=== PATIENT | male | born 1975 | race Caucasian/White ===

== ENCOUNTER 2021-06-02 10:09 | Emergency (ER) | payer SELFPAY ==
[2021-06-02 10:18] VITALS: BP 102/71; PULSE 78; RESP 18; TEMP 36.9; O2SAT 97; BMI 27.3
--- NOTE | 2021-06-02 11:03 | XR_ITS ---
WS: [id number] Exam: XR chest 2V* [id number] Date/Time of Exam: 06/02/2021 11:07 AM Reason For Exam: eval for pathologies Comparison 07/09/2016. Lobulated pulmonary density seen in the region of the superior segment of the left lower lobe. This m ay represent consolidating pneumonia or mass. The lungs are fully inflated and otherwise clear. Estelita l heart size. The mediastinum is normal in contour. Regional bony elements are intact. Dextroscoliosi s of the T-spine. No pleural effusions. Recommendations: Contrast CT scanning of the chest recommended for further workup. XR/XR chest 2V* [id number] IMPRESSION: 1. Prominent lobulated pulmonary density in the region of the superior segment of the left lower lobe. This may represent a mass or consolidating pneumonia.
--- NOTE | 2021-06-02 11:15 | ECG_ITS ---
[facility] Test Date: 2021-06-02 Pat Name: Kee Catherine Department: Room: Gender: Male Counter Server: : 1975 Requested By: Allen Mondragon Order Number: [id number] Rico MD: Elliot Basilio M.D. Measurements Intervals [place] Rate: 77 P: 62 TN: 119 QRS: 56 QRSD: 84 T: 51 QT: 414 QTc: 471 Interpretive Statements SINUS RHYTHM WITH SHORT TN INTERVAL Compared to ECG 07/09/2016 16:20:23 Short TN interval now present Sinus bradycardia no longer present Electronically Signed On 06-02-2021 22:03:04 CDT by Elliot Basilio M.D. [id number]
--- NOTE | 2021-06-02 11:16 | W.ED.GENADLT ---
HPI - General Adult General: Chief complaint: General Medical Stated complaint: Knot in side with pain Time Seen by Provider: 06/02/21 11:03 History of Present Illness: Patient is a 46-year-old male with no known past medical history presents the emergency room for evaluation of left-sided abdominal pain x 2 weeks. Patient states that this pain has been, for the last 2 days, is occasionally sharp and worse with inspiration. Patient also reports last week, shortly after eating at a [employer] restaurant, patient has a nausea vomiting and watery stool. Patient reports subjective fever and chills but reports no symptoms largely improved. Patient denies any productive cough, exertional chest pain, pleuritic chest pain, melena/hematochezia or urinary complaints at this time. Onset: 2 weeks ago Duration:2 weeks Location:home Severity:mild/moderate Associated symptoms: Reports nausea and vomiting; Deny chest pain, dyspnea, rash or palpitations Review of Systems Const: Denies: fever(s) or chills Eyes: Denies: change in vision ENMT: Denies: mouth pain Card: Denies: chest pain or palpitations Resp: Denies: dyspnea or non-productive cough GI: Reports: abdominal pain, nausea, vomiting and diarrhea : Denies: dysuria Musc: Denies: extremity pain Skin/Breast: Denies: rash or new lesions Neuro: Denies: weakness in extremities Psych: Reports: other (Normal mood) Liam/Lymph: Denies: easy bruising Physical Exam Const: COMMON NORMALS: alert HENMT: COMMON NORMALS: atraumatic HEAD & SCALP: atraumatic MOUTH: moist mucous membranes not abnormal OTHER: TM intact b/l, no EAC edema or erythema Eye: COMMON NORMALS: EOMs intact bilaterally and conjunctivae normal CONJUNCTIVA: Yes conjunctivae normal OTHER: No dendritic lesions on fluorsceine evaluation of both eyes Neck/C-Spine: COMMON NORMALS: full ROM and supple Resp: COMMON NORMALS: normal respiratory effort and clear to auscultation bilaterally AUSCULTATION: clear to auscultation bilaterally Cardio: COMMON NORMALS: regular rate RATE: regular rate GI: COMMON NORMALS: Soft to palpation PALPATION: Yes Soft to palpation OTHER: +LUQ abd tenderness to palpation. No guarding rebound, guarding, rigidity. No CVA tenderness to percussion. Neg Phillips/Neg McBurney's point tenderness, no suprabupic tenderness to palpation. Extremity: COMMON NORMALS: full ROM Neuro: SENSORIUM/ORIENTATION: Yes alert MOTOR EXAM: No Abnormal motor strength present and Other motor observations present (no focal motor deficits) Psych: COMMON NORMALS: speech normal SPEECH: Yes normal speech MOOD & AFFECT: Yes euthymic mood Skin: NARRATIVE SKIN EXAM: +nasal bridge erythema and veiscular lesions +perioral vesicular lesions Course Vital Signs: Vital signs: Vital Signs Temperature 98.4 F 06/02/21 10:18 Pulse Rate 80 06/02/21 12:15 Respiratory Rate 16 06/02/21 12:15 Blood Pressure 131/87 06/02/21 12:15 Pulse Oximetry 99 06/02/21 12:15 MDM - General Adult Medical Decision Making 46-year-old male presenting to the emergency room for complaints of abdominal pain x2 weeks in the setting of nausea vomiting and diarrhea and new facial rash over the nose x1 week. On physical exam, patient is noted to have eruptive vesicular lesion over the nasal bridge. Patient has no dendritic lesion on forcing the exam of the eye. EAC intact bilaterally. At the present time, it is unclear whether patient is having early herpes zoster ophthalmicus. Patient has no history of immunocompromise, will treat with antibiotics and antiviral medicine. Patient is noted to have a white count of 18.2. X-ray chest showed left upper lobe consolidating lesion. It is unclear what this lesion needs is. Patient has a copy of the x-ray report as instructed follow-up with PCP for further evaluation of this mass. We will treated for now as pneumonia and patient was instructed to follow-up to further evaluate this mass. Other lab work up within normal limit. CT of pelvis did not show any acute finding. Given the fact the patient has possible hepatic lesions, we will double cover for pneumonia. I have given patient follow up with our bilingual patient support caseworker to be seen by our outpatient Opthalmology for evaluation for possible herpetic infection of the nose. Patient aware of a call from our bilingual patient support caseworker to schedule for appointment(s) and verbalizes understanding of the importance of following up. I have given patient follow up with our bilingual patient support caseworker to be seen by our outpatient PCP at the [facility] as patient is lives to there for outpatient management of PNA. Patient aware of a call from our bilingual patient support caseworker to schedule for appointment(s) and verbalizes understanding of the importance of following up. Rx valcyclovir 1g TID x 7 days and augmentin BID x 10 days for pneumonia, doxycycline BID x 5 days for pneumonia Disposition: Discharge. Patient counseled regarding diagnostic impression, treatment plan. Patient given ED strict return precautions to return for continuation, worsening, or development of new symptoms. Instructed to f/u w/ PCP regarding symptoms today. Patient verbalized understanding. Lab Data : 06/02/21 12:00 06/02/21 12:00 Radiology Impressions Chest X-Ray 06/02/21 11:03 IMPRESSION: 1. Prominent lobulated pulmonary density in the region of the superior segment of the left lower lobe. This may represent a mass or consolidating pneumonia. Ribs X-Ray 06/02/21 11:18 IMPRESSION: 1. No acute left rib fracture or pneumothorax. Abdomen/Pelvis CT 06/02/21 12:23 IMPRESSION: 1. LEFT lower lobe pneumonia. 2. No GI tract obstruction. 3. No renal obstruction. 4. No ascites or adenopathy. 5. Normal appendix. Laboratory Results WBC 18.2 10^3/uL (4.0-10.0) H 06/02/21 12:00 RBC 4.81 10^6/uL (4.1-5.3) 06/02/21 12:00 Hgb 13.5 g/dL (11.7-16.6) 06/02/21 12:00 Hct 41.3 % (42.0-52.0) L 06/02/21 12:00 MCV 85.9 fl (80-94) 06/02/21 12:00 MCH 28.1 pg (28.0-34.0) 06/02/21 12:00 MCHC 32.7 g/dL (30.0-36.0) 06/02/21 12:00 RDW 13.0 % (12.1-15.1) 06/02/21 12:00 Plt Count 558 10^3/cmm (130-400) H 06/02/21 12:00 MPV 9.4 fL (7.4-10.4) 06/02/21 12:00 Neut % (Auto) 81.9 % 06/02/21 12:00 Lymph % (Auto) 10.7 % 06/02/21 12:00 [place] % (Auto) 5.0 % 06/02/21 12:00 Eos % (Auto) 0.9 % 06/02/21 12:00 Baso % (Auto) 0.4 % 06/02/21 12:00 Neut # (Auto) 14.90 10^3/uL (1.8-7.7) H 06/02/21 12:00 Lymph # (Auto) 1.9 10^3/uL (0.8-4.8) 06/02/21 12:00 [place] # (Auto) 0.9 10^3/uL (0.2-0.9) 06/02/21 12:00 Eos # (Auto) 0.2 10^3/uL (0.0-0.8) 06/02/21 12:00 Baso # (Auto) 0.1 10^3/uL (0.0-0.1) 06/02/21 12:00 Nucleated RBC % (auto) 0 % 06/02/21 12:00 Nucleated RBCs # 0.0 /100WBC 06/02/21 12:00 Sodium 138 mmol/L (136-145) 06/02/21 12:00 Potassium 3.4 mmol/L (3.5-5.1) L 06/02/21 12:00 Chloride 99 mmol/L (98-107) 06/02/21 12:00 Carbon Dioxide 25 mmol/L (22-29) 06/02/21 12:00 Anion Gap 17.4 (5-19) 06/02/21 12:00 BUN 5 mg/dL (6-20) L 06/02/21 12:00 Creatinine 0.5 mg/dL (0.7-1.2) L 06/02/21 12:00 GFR Calculation 180.6 mL/min (90-130) H 06/02/21 12:00 Glucose 92 mg/dL (65-115) 06/02/21 12:00 Calculated Osmolality 283 mOsm/kg (285-295) L 06/02/21 12:00 Calcium 9.0 mg/dL (8.5-10.5) 06/02/21 12:00 Total Bilirubin 0.2 mg/dL (0.15-1.2) 06/02/21 12:00 AST 14 U/L (0-40) 06/02/21 12:00 ALT 21 U/L (0-41) 06/02/21 12:00 Alkaline Phosphatase 106 IU/L (40-130) 06/02/21 12:00 Troponin T Baseline 6 ng/L (0-15) 06/02/21 12:00 Total Protein 7.1 g/dL (6.6-8.7) 06/02/21 12:00 Albumin 3.5 g/dL (3.5-5.2) 06/02/21 12:00 Globulin 3.6 g/dL (1.3-4.6) 06/02/21 12:00 Lipase 39 U/L (13-60) 06/02/21 12:00 Urine Color Straw (Yellow) 06/02/21 12:15 Urine Appearance Clear (CLEAR) 06/02/21 12:15 Urine pH 8 (5-7) H 06/02/21 12:15 Ur Specific [place] 1.010 (1.005-1.030) 06/02/21 12:15 Urine Protein Neg (Negative) 06/02/21 12:15 Urine Glucose (UA) Norm (Normal) 06/02/21 12:15 Urine Ketones Negative (Negative) 06/02/21 12:15 Urine Blood Neg (Negative) 06/02/21 12:15 Urine Nitrate Negative (Negative) 06/02/21 12:15 Urine Bilirubin Neg (Negative) 06/02/21 12:15 Prot Sulfosalicylic Acd Negative (Negative) 06/02/21 12:15 Urine Urobilinogen 1 mg/dL (Negative) H 06/02/21 12:15 Ur Leukocyte Esterase Negative (Negative) 06/02/21 12:15 Imaging Data Other Imaging: Radiologist's impression: [address] [address] XRay Report Signed Patient: Kee Catherine Unit #: [id number] : 1975 Age/Sex: 46 / M ADM Date: 06/02/21 Loc: ER Room/Bed: Attending Dr: Ordering Provider/Ordering MD: Allen Mondragon MD Date of Service: 06/02/21 Procedure(s): XR chest 2V* [id number] Accession Number(s): [id number] Report Number: [id number] [email or web address] Exam: XR chest 2V* [id number] Date/Time of Exam: 06/02/2021 11:07 AM Reason For Exam: eval for pathologies Comparison 07/09/2016. Lobulated pulmonary density seen in the region of the superior segment of the left lower lobe. This may represent consolidating pneumonia or mass. The lungs are fully inflated and otherwise clear. Normal heart size. The mediastinum is normal in contour. Regional bony elements are intact. Dextroscoliosis of the T-spine. No pleural effusions. Recommendations: Contrast CT scanning of the chest recommended for further workup. XR/XR chest 2V* [id number] IMPRESSION: 1. Prominent lobulated pulmonary density in the region of the superior segment of the left lower lobe. This may represent a mass or consolidating pneumonia. ? Dictated By: Curt Baldwin DO Signed By: Curt Baldwin DO Signed Date/Time: 06/02/21 1144 DD/ [address] [address] XRay Report Signed Patient: Kee Catherine Unit #: [id number] : 1975 Age/Sex: 46 / M ADM Date: 06/02/21 Loc: ER Room/Bed: Attending Dr: Ordering Provider/Ordering MD: Allen Mondragon MD Date of Service: 06/02/21 Procedure(s): XR ribs LT 2V* 56298 Accession Number(s): [id number] Report Number: [id number] WS: [email or web address] Exam: XR ribs LT 2V* 49125 Date/Time of Exam: 06/02/2021 11:19 AM Reason For Exam: KNOT IN SIDE WITH PAIN; EVAL FOR PATHOLOGIES No acute left rib fracture noted. The left lung is fully expanded and clear. No pleural or pulmonary reactive changes. XR/XR ribs LT 2V* 84415 IMPRESSION: 1. No acute left rib fracture or pneumothorax. ? Dictated By: Curt Baldwin DO Signed By: Curt Baldwin DO Signed Date/Time: 06/02/21 1141 DD/ 1138 [facility] [address] [place] [address] CT Scan Report Signed Patient: Kee Catherine Unit #: [id number] : 1975 Age/Sex: 46 / M ADM Date: 06/02/21 Loc: ER Room/Bed: Attending Dr: Ordering Provider/Ordering MD: Allen Mondragon MD Date of Service: 06/02/21 Procedure(s): CT abdomen pelvis w con* 95332 Accession Number(s): [id number] Report Number: [id number] WS: [email or web address] CT ABDOMEN AND PELVIS WITH CONTRAST HISTORY: Left-sided abdominal pain for 2 weeks. TECHNIQUE: Imaging performed of the abdomen and pelvis with IV contrast.? Single phase imaging of the abdomen. Coronal and sagittal reformats are submitted.? All CT scans at [facility] use at least one of these dose optimization techniques: automated exposure control; mA and/or kV adjustment per patient size (includes targeted exams where dose is matched to clinical indication); or iterative reconstruction. IV CONTRAST: Omnipaque 300; 95 mL IV. Oral contrast: No DLP: 1075.93 mGy.cm COMPARISON: 07/09/2016 Lower thorax: LEFT lower lobe pneumonia. Heart is normal size. Moderate size hiatal hernia. Liver/biliary system: Liver is normal size. Very small scattered areas of decreased attenuation throughout the liver which are too small to characterize but the majority of these are stable since 2017. These may be small cysts or hemangiomas. No bile duct dilatation. Gallbladder: Normal. No gallstones or wall thickening. No pericholecystic fluid.? Pancreas: Normal size pancreas and pancreatic duct. No adjacent inflammation. Spleen: Normal size spleen. No mass or infarct. Adrenal glands: Normal. Right kidney: Normal. Left kidney: No obstruction. There are several small cortical cysts. Largest cyst measures 18 x 14 mm. No obstruction of the kidney. Aorta: Normal. Lymphadenopathy: None. Free fluid: None. GI tract: No small bowel or colon obstruction. The appendix is normal. No mass. Abdominal wall: Unremarkable abdominal wall. No hernia. Pelvis: No free fluid or adenopathy in the pelvis. Minimally distended urinary bladder. Bones: Mild increase in lumbar lordosis. CT/CT abdomen pelvis w con* 76006 IMPRESSION: ? 1.? LEFT lower lobe pneumonia. 2.? No GI tract obstruction. 3.? No renal obstruction. 4.? No ascites or adenopathy. 5.? Normal appendix. ? Dictated By: Tara Childress DO Signed By: Tara Childress DO Signed Date/Time: 06/02/21 1311 DD/ 1259 Discharge Plan Discharge Patient Disposition: Home Clinical Impression: Abdominal pain, Lung mass, Pneumonia Condition: Stable Prescriptions: New Augmentin 875-125 mg tablet 1 tab PO Q12H 10 Days Qty: 20 0RF Valtrex 1 gram tablet 1,000 mg PO TID 7 Days Qty: 21 0RF acetaminophen 500 mg tablet 500 mg PO Q6H PRN (Reason: pain) 5 Days Qty: 20 0RF doxycycline hyclate 100 mg tablet 100 mg PO BID 5 Days Qty: 10 0RF Discharge Orders: Discharge ED (Routine); Ordered 06/02/21 Ordered By: Allen Mondragon Discharge Diet: Advance as tolerated Discharge Activity: Increase activity as tolerated Patient Instructions: Abdominal Pain (ED) Activity Restrictions/Additional Instructions: Our bilingual patient support caseworker will have you follow-up with a primary care provider at [facility] in the next few days. You would be expected to have a phone call with our bilingual patient support caseworker who will put you on the schedule. You can expect a call from us in the next 2-3 days. If you don't hear from us, call us back in the emergency room at [phone]. I have given patient follow up with our bilingual patient support caseworker to be seen by our outpatient Opthalmology for evaluation of Oliva sign and possible herpes zoster opthalmicus. Patient aware of a call from our bilingual patient support caseworker to schedule for appointment(s) and verbalizes understanding of the importance of following up. Please take your antibiotics and antiviral as instructed. Watch out for signs of skin changes/redness, mouth redness or swelling, nausea/vomiting, diarrhea, blood in the urine or any new or concering complaints. Here's a copy of your CT report: [employer] [address] XRay Report Signed Patient: Kee Catherine Unit #: [id number] : 1975 Age/Sex: 46 / M ADM Date: 06/02/21 Loc: ER Room/Bed: Attending Dr: Ordering Provider/Ordering MD: Allen Mondragon MD Date of Service: 06/02/21 Procedure(s): XR chest 2V* [id number] Accession Number(s): [id number] Report Number: [id number] WS: [email or web address] Exam: XR chest 2V* [id number] Date/Time of Exam: 06/02/2021 11:07 AM Reason For Exam: eval for pathologies Comparison 07/09/2016. Lobulated pulmonary density seen in the region of the superior segment of the left lower lobe. This may represent consolidating pneumonia or mass. The lungs are fully inflated and otherwise clear. Normal heart size. The mediastinum is normal in contour. Regional bony elements are intact. Dextroscoliosis of the T-spine. No pleural effusions. Recommendations: Contrast CT scanning of the chest recommended for further workup. XR/XR chest 2V* 67565 IMPRESSION: 1. Prominent lobulated pulmonary density in the region of the superior segment of the left lower lobe. This may represent a mass or consolidating pneumonia. ? Dictated By: Curt Baldwin DO Signed By: Curt Baldwin DO Signed Date/Time: 06/02/21 1144 DD/ 1141 Coding Level of Care Code ED Trailer Mechanic for Chg Fwd Exam Comprehensive
--- NOTE | 2021-06-02 11:18 | XR_ITS ---
WS: [email or web address] Exam: XR ribs LT 2V* [id number] Date/Time of Exam: 06/02/2021 11:19 AM Reason For Exam: KNOT IN SIDE WITH PAIN; EVAL FOR PATHOLOGIES No acute left rib fracture noted. The left lung is fully expanded and clear. No pleural or pulmonary reactive changes. XR/XR ribs LT 2V* 18845 IMPRESSION: 1. No acute left rib fracture or pneumothorax.
[2021-06-02] MEDS: lidocaine 5% Patch 1 PATCH TOPICAL (11:54)
[2021-06-02] MEDS: sodium chloride 0.9% 500 ML IV (11:54)
[2021-06-02] MEDS: lidocaine 2% viscous 15 ML, aluminum-mag hydrox-simethicon 30 ML, sucralfate oral liq 1 GM PO (11:54)
[2021-06-02] MEDS: acetaminophen 500 mg Tablet 1000 MG PO (11:54)
[2021-06-02 12:14] LABS: Basophils # 0.1 10^3/uL (0.0-0.1); Basophils % 0.4 %; Eosinophils # 0.2 10^3/uL (0.0-0.8); Eosinophils % 0.9 %; Hematocrit 41.3 % (42.0-52.0); Hemoglobin 13.5 g/dL (11.7-16.6); Lymphocytes # 1.9 10^3/uL (0.8-4.8); Lymphocytes % 10.7 %; Mean Corpuscular HGB Conc 32.7 g/dL (30.0-36.0); Mean Corpuscular Hemoglobin 28.1 pg (28.0-34.0); Mean Corpuscular Volume 85.9 fl (80-94); Mean Platelet Volume 9.4 fL (7.4-10.4); Monocytes # 0.9 10^3/uL (0.2-0.9); Neutrophils % 81.9 %; Nucleated Red Blood Cells % 0 %; Platelet Count 558 10^3/cmm (130-400); Red Blood Count 4.81 10^6/uL (4.1-5.3); White Blood Count 18.2 10^3/uL (4.0-10.0)
[2021-06-02 12:15] VITALS: BP 131/87; PULSE 80; RESP 16; O2SAT 99
--- NOTE | 2021-06-02 12:23 | CT_ITS ---
WS: [email or web address] CT ABDOMEN AND PELVIS WITH CONTRAST HISTORY: Left-sided abdominal pain for 2 weeks. TECHNIQUE: Imaging performed of the abdomen and pelvis with IV contrast. Single phase imaging of the abdomen. Coronal and sagittal reformats are submitted. All CT scans at [facility] use at [address] one of these dose optimization techniques: automated exposure control; mA and/or kV adjustment per patient size (includes targeted exams where dose is matched to clinical indication); or iterative re construction. IV CONTRAST: Omnipaque 300; 95 mL IV. Oral contrast: No DLP: 1075.93 mGy.cm COMPARISON: 07/09/2016 Lower thorax: LEFT lower lobe pneumonia. Heart is normal size. Moderate size hiatal hernia. Liver/biliary system: Liver is normal size. Very small scattered areas of decreased attenuation throu ghout the liver which are too small to characterize but the majority of these are stable since 2017. These may be small cysts or hemangiomas. No bile duct dilatation. Gallbladder: Normal. No gallstones or wall thickening. No pericholecystic fluid. Pancreas: Normal size pancreas and pancreatic duct. No adjacent inflammation. Spleen: Normal size spleen. No mass or infarct. Adrenal glands: Normal. Right kidney: Normal. Left kidney: No obstruction. There are several small cortical cysts. Largest cyst measures 18 x 14 mm . No obstruction of the kidney. Aorta: Normal. Lymphadenopathy: None. Free fluid: None. GI tract: No small bowel or colon obstruction. The appendix is normal. No mass. Abdominal wall: Unremarkable abdominal wall. No hernia. Pelvis: No free fluid or adenopathy in the pelvis. Minimally distended urinary bladder. Bones: Mild increase in lumbar lordosis. CT/CT abdomen pelvis w con* 15037 IMPRESSION: 1. LEFT lower lobe pneumonia. 2. No GI tract obstruction. 3. No renal obstruction. 4. No ascites or adenopathy. 5. Normal appendix.
[2021-06-02] MEDS: fluorescein 1 mg Strip EYE-BOTH (12:24)
[2021-06-02 12:25] LABS: Add Urine Microscopic? NO; Charge for UA Resulting for Rev
[2021-06-02 12:46] LABS: Alanine Aminotransferase 21 U/L (0-41); Albumin Level 3.5 g/dL (3.5-5.2); Alkaline Phosphatase 106 IU/L (40-130); Anion Gap 17.4 (5-19); Aspartate Amino Transferase 14 U/L (0-40); Blood Urea Nitrogen 5 mg/dL (6-20); Carbon Dioxide 25 mmol/L (22-29); Chloride 99 mmol/L (98-107); Globulin 3.6 g/dL (1.3-4.6); Glomerular Filtration Rate 180.6 mL/min (90-130); Glucose 92 mg/dL (65-115); Lipase 39 U/L (13-60); Osmolality Calculated 283 mOsm/kg (285-295); Potassium 3.4 mmol/L (3.5-5.1); Sodium 138 mmol/L (136-145); Total Bilirubin 0.2 mg/dL (0.15-1.2); Total Protein 7.1 g/dL (6.6-8.7); Troponin(5th) Baseline 6 ng/L (0-15)
[2021-06-02] MEDS: iohexol 300 mg/mL 100 mL Btl IV (12:53)
[2021-06-02 12:59] LABS: Bilirubin Urine Neg (Negative); Blood Urine Neg (Negative); Glucose Urine UA Norm (Normal); Ketones Urine Negative (Negative); Leukocyte Esterase Urine Negative (Negative); Nitrate Urine Negative (Negative); Protein Urine Neg (Negative); Urine Appearance Clear (CLEAR); Urine Color Straw (Yellow); Urobilinogen Urine 1 mg/dL (Negative); pH Urine 8 (5-7)
[2021-06-02 13:06] LABS: Sulfosalicylic Acid Urine Negative (Negative)
[2021-06-02 13:40] VITALS: BP 121/80; PULSE 83; RESP 16; O2SAT 97
--- NOTE | 2021-06-03 10:55 | DCPLANNER ---
Addendum entered by Kristi Vidal 06/26/21 13:30: Patient had a follow up appointment scheduled with the [facility] - appointment was cancelled. Addendum entered by Kristi Vidal 06/10/21 14:58: Patient had a follow up appointment scheduled for 06.09.21 at the [facility] it was rescheduled to 06.16.21 - patient aware. Patient had a follow up appointment scheduled with Dr. Vázquez for 06.05.21 - patient did not attend appointment. Original Note: consulting property manager had message to schedule a follow up appointment for patient with primary care physician and a follow up appointment for patient with Dr. Vázquez, opthalmology. consulting property manager called patient to inform patient that piano case maker had a referral to send patients information to opthalmology and to get patient established with a primary care. Patient stated that he wanted to see a provider at the [facility]. consulting property manager called the [facility], gave clinic patients information. A follow up appointment was scheduled for Wednesday, June 09, 2021 at 3:20 with Rahul Crawford. consulting property manager called patient and gave patient the appointment information. consulting property manager also told patient that his information was sent to Dr. Vázquez office and that clinic will be calling patient with appointment information.
== END 2021-06-02 13:44 | disposition home or self-care (01) ==
PROVIDERS: Emergency Provider Emergency Medicine
DX: R10.9 Unspecified abdominal pain (principal); J18.9 Pneumonia, unspecified organism; R91.8 Other nonspecific abnormal finding of lung field
CPT/HCPCS: 71046; 71100; 74177; 80053; 81003; 83690; 84484; 85025; 93005; 96360; 99284; J7040; Q9967

== ENCOUNTER 2023-12-22 09:50 | Day surgery (SDC) | payer OTHER, SELFPAY ==
[2023-12-22 10:47] VITALS: BP 126/89; PULSE 69; RESP 16; TEMP 36.9; O2SAT 97
[2023-12-22 10:48] VITALS: BMI 24.7
[2023-12-22] MEDS: sodium chloride 0.9% 1,000 ML 30 ML IV (10:58)
--- NOTE | 2023-12-22 11:43 | PM.HP ---
Providers/Chief Complaint Primary Care Provider: Chico Platt MD Chief Complaint: Z12.11 History of Present Illness Kee Catherine is a 48 year old male Review of Systems General: Reports: 10 or more systems reviewed and unremarkable except in HPI and below Medications/Allergies Home Medications Medication Instructions Recorded Confirmed Last Taken Type No Known Home Medications 11/05/23 12/20/23 Unknown History Allergies Allergy/AdvReac Type Severity Reaction Status Date / Time No Known Allergies Allergy Verified 11/05/23 11:44 PFSH Acute PFSH: Social History Smoking and tobacco/nicotine status: never used tobacco/nicotine Vitals/I&O/Wt Last Vital Signs Temp 98.4 F 12/22/23 10:47 Pulse 69 12/22/23 10:47 Resp 16 12/22/23 10:47 BP 126/89 12/22/23 10:47 Pulse Ox 97 12/22/23 10:47 O2 Del Method Room Air 12/22/23 10:47 Weight last 48 hrs Weight 168 lb A&P Assessment and plan (1) Hematochezia: (2) Colon cancer screening: Plan Colonoscopy Attestations Medical Necessity Statement*: Home Coding Level of Care Code Acute Code for Chg Fwd Diagnoses Hematochezia K92.1 Colon cancer screening Z12.11
[2023-12-22 13:02] VITALS: BP 90/73; PULSE 80; RESP 10; TEMP 36.1; O2SAT 92
[2023-12-22 13:07] VITALS: BP 93/72; PULSE 77; RESP 16; O2SAT 95
[2023-12-22 13:17] VITALS: BP 91/68; PULSE 76; RESP 18; O2SAT 95
--- NOTE | 2023-12-22 13:28 | ANES.PREANE2 ---
Pre-Anesthetic Assessment Height/Weight: Height 5 ft 9 in Weight 168 lb Temp Pulse Resp BP Pulse Ox O2 Del Method 98.4 F 69 16 126/89 97 Room Air 12/22/23 10:47 12/22/23 10:47 12/22/23 10:47 12/22/23 10:47 12/22/23 10:47 12/22/23 10:47 Preop Diagnosis: screening colonoscopy Operation Date: 12/22/23 11:45 Proposed Procedures p Colonoscopy 89878, g0121., 712.11(Not Applicable) - Suleman Pina DO Was Beta Ivet taken within 24 hours: N/A Was Clonidine taken within 24 hours: N/A Last intake: Intake Last Liquid Date 12/21/23 Last Liquid Time 19:30 Last Solid Date 12/21/23 Last Solid Time 10:30 Social Tobacco and No alcohol Exam alert, oriented x 3, clear to auscultation bilaterally and regular rate & rhythm Airway Submandibular: within normal limits Cervical ROM: within normal limits Mallampati: Class II Dentition: other (very poor dentition) Anesthetic Plan ASA status: 2 Anesthesia: MAC Other: No prior issues with anesthesia Completed bowel prep Current smoker Denies any cardiac issues Very poor dentition, denies any loose teeth METs greater than 4 Plan for MAC anesthetic Medications/Allergies Home Medications Medication Instructions Recorded Confirmed Last Taken Type No Known Home Medications 11/05/23 12/20/23 Unknown History Allergies Allergy/AdvReac Type Severity Reaction Status Date / Time No Known Allergies Allergy Verified 11/05/23 11:44 Current Medications Generic Name Dose Route Start Last Admin Trade Name Freq PRN Reason Stop Dose Admin Sodium Chloride 1,000 mls @ 30 mls/hr 12/22/23 10:30 12/22/23 12:52 Sodium Chloride 0.9% IV 12/23/23 10:29 Infused .Q24H INES Infusion PFSH Anesthesia Social History Smoking and tobacco/nicotine status: never used tobacco/nicotine Data Anesthesia Cardiac Studies: No Data to Display
[2023-12-22 13:50] VITALS: BP 116/79; PULSE 70; RESP 18; O2SAT 95
[2023-12-22] MEDS: tranexamic acid 1,000 MG/100 ML PREMIX 600 MG IV (14:01)
[2023-12-22 14:10] VITALS: BP 98/73; PULSE 66; RESP 18; O2SAT 93
[2023-12-22 14:32] LABS: Carcinoembryonic Antigen 1.4 ng/mL (0.0-4.7)
--- NOTE | 2023-12-22 14:55 | ANE.PACU2 ---
Inpatient post-anesthesia follow up: Airway intact: Yes Vital signs: Temperature 97.0 F Pulse Rate 66 Respiratory Rate 18 Blood Pressure 98/73 Pulse Oximetry 93 Oxygen Delivery Me thod Room Air Oxygen Flow Rate 2 Fraction of Inspir ed Oxygen Hydration adequate: Yes Nausea and vomiting: No Pain level: 1 Mental status: Baseline
== END 2023-12-22 14:55 | disposition home or self-care (01) ==
PROVIDERS: PCP Family Medicine; Visit Provider Surgery
PROC: 0DJD8ZZ Inspection of Lower Intestinal Tract, Via Natural or Artificial Opening Endoscopic (ICD-10-PCS; CPT 45378; principal; 2023-12-22 11:45)
DX: C20 Malignant neoplasm of rectum (principal); D12.4 Benign neoplasm of descending colon; D12.3 Benign neoplasm of transverse colon; F17.200 Nicotine dependence, unspecified, uncomplicated
CPT/HCPCS: 45380; 45385; 82378; 88305; 88341; 88342; J2371; J2704; J7030

== ENCOUNTER 2024-01-03 16:54 | Outpatient (CLI) | payer OTHER, MEDICAID, SELFPAY ==
--- NOTE | 2024-01-03 17:15 | CT_ITS ---
WS: [id number] CT ABDOMEN AND PELVIS WITH AND WITHOUT CONTRAST HISTORY: rectal mass/tumor TECHNIQUE: Unenhanced 5 mm axial imaging first performed through the abdomen. Post contrast imaging t hrough the abdomen and pelvis. Oral contrast has been provided. Sagittal and coronal reformats are s ubmitted. All CT scans at [facility] use at least one of these dose optimization techniques: automated exposure control; mA and/or kV adjustment per patient size (includes targeted exams where d ose is matched to clinical indication); or iterative reconstruction. CONTRAST: Omnipaque 350; 95 mL IV. DLP: 632.29 mGy.cm COMPARISON: 06/02/2021 Normal size heart. Hyperexpanded lungs with no nodule. Small hiatal hernia contains oral contrast. Numerous scattered too small to characterize hypodensities within the liver. Majority of these were p resent on the prior study and some are more conspicuous. Normal portal vein. Normal gallbladder. Norm al spleen and adrenal glands. Normal pancreas. No renal obstruction. 1.8 x 1.2 cm cyst posterior LEFT kidney is very slightly increased in size sinc e 06/02/2021. Normal aorta. Stomach is well distended with oral contrast. No small bowel obstruction. No appendicitis. Mild diffu se constipation and fecal retention. Round soft tissue mass identified near the splenic flexure and t he lumen of the colon measures 2.3 x 2.1 cm will need to be further evaluated. There is an additional asymmetric enhancing mass at the rectum extending over a length of 5.3 cm. There is some mucosal thi ckening up to 1.2 cm to the LEFT. 50% encasement of the rectum. No obstruction. There are a few small perirectal lymph nodes there is also a metallic foreign body or postbiopsy clip the sigmoid extendin g over a length of 2.0 cm. No ascites are retroperitoneal enlarged lymph nodes. Increase in lumbar lordosis and scoliosis. CT/CT abdomen pelvis wo/w [id number] IMPRESSION: 1. LEFT asymmetric rectal mass extends over a length of 5.3 cm with LEFT recta l wall thickening to 1.2 cm. Rectal wall thickening likely tumor encasing great er than 50% of the rectum. There are a few very small adjacent mesorectal fat l ymph nodes. 2. There is an additional soft tissue mass in the splenic flexure measuring 2. 3 x 2.1 cm. Cannot exclude an additional neoplasm. 3. Multiple, too small to characterize scattered hypodensities within the live r. Some of these were present in 2021. Others are new. Differential includes to o small to characterize cyst, hepatic hemangiomas or potentially early metastat ic lesions. 4. No adrenal mass. 5. No ascites or adenopathy.
[2024-01-03] MEDS: iohexol 350 mg/mL 500 mL Btl (per mL) IV (18:09)
== END 2024-01-03 16:55 | disposition home or self-care (01) ==
LOC: RAD 16:56
PROVIDERS: PCP Family Medicine; Visit Provider Surgery
DX: K62.89 Other specified diseases of anus and rectum (principal); D37.5 Neoplasm of uncertain behavior of rectum; D12.3 Benign neoplasm of transverse colon; R93.2 Abnormal findings on diagnostic imaging of liver and biliary tract
CPT/HCPCS: 74178

== ENCOUNTER 2024-02-02 15:33 | Oncology outpatient (recurring) (ONCR) | payer OTHER, BC, MEDICAID, SELFPAY ==
[2024-02-02 17:51] LABS: Basophils # 0.1 10^3/uL (0.0-0.1); Basophils % 0.8 %; Eosinophils # 0.1 10^3/uL (0.0-0.8); Eosinophils % 1.4 %; Hematocrit 45.2 % (37-53); Lymphocytes # 2.2 10^3/uL (0.8-4.8); Lymphocytes % 24.3 %; Mean Corpuscular HGB Conc 33.4 g/dL (30-55); Mean Corpuscular Hemoglobin 29.4 pg (27-33); Mean Corpuscular Volume 88.1 fl (82-101); Mean Platelet Volume 9.5 fL (7.4-10.4); Monocytes # 0.6 10^3/uL (0.2-0.9); Neutrophils % 67.3 %; Nucleated Red Blood Cells % 0 %; Platelet Count 345 10^3/cmm (157-399); Red Blood Count 5.13 10^6/uL (3.85-5.65); Red Cell Distribution Width 13.4 % (12.1-15.1); White Blood Count 9.21 10^3/uL (3.29-11.43)
[2024-02-02 18:11] LABS: Alanine Aminotransferase 8 U/L (0-41); Albumin Level 4.3 g/dL (3.5-5.2); Alkaline Phosphatase 105 U/L (40-130); Anion Gap 12.6 (5-19); Aspartate Amino Transferase 10 U/L (0-40); Blood Urea Nitrogen 5 mg/dL (6-20); Calcium 9.2 mg/dL (8.5-10.5); Carbon Dioxide 27 mmol/L (22-29); Chloride 102 mmol/L (98-107); Creatinine Clr Calc Pharmacy 127.1546; Ferritin 55 ng/mL (30-400); Globulin 2.1 g/dL (1.3-4.6); Glomerular Filtration Rate 120.9 mL/min (90-130); Glucose 99 mg/dL (65-115); Iron 77 ug/dL (59-158); Lactate Dehydrogenase 121 U/L (135-225); Osmolality Calculated 283 mOsm/kg (285-295); Percent Saturation 25.1 % (20-50); Potassium 3.6 mmol/L (3.5-5.1); Sodium 138 mmol/L (136-145); Total Bilirubin 0.3 mg/dL (0.15-1.2); Total Iron Binding Capacity 306 mcg/dl; Total Protein 6.4 g/dL (6.6-8.7); Unsaturated Iron Binding 229 ug/dL (112-347)
[2024-02-02 20:16] LABS: Carcinoembryonic Antigen 2.3 ng/mL (0.0-4.7)
== END 2024-02-05 23:59 | disposition home or self-care (01) ==
PROVIDERS: PCP Family Medicine; Visit Provider Internal Medicine
DX: Z53.9 Procedure and treatment not carried out, unspecified reason (principal); C20 Malignant neoplasm of rectum; R93.2 Abnormal findings on diagnostic imaging of liver and biliary tract; K92.1 Melena; R63.4 Abnormal weight loss
CPT/HCPCS: 36415; 80053; 82378; 82728; 83540; 83550; 83615; 85025

== ENCOUNTER 2024-03-03 15:15 | Oncology outpatient (recurring) (ONCR) | payer BC, MEDICAID, SELFPAY ==
--- NOTE | 2024-03-03 15:15 | MRR_ITS ---
PROCEDURE INFORMATION: Exam: MR Abdomen Without and With Contrast Exam date and time: 03/03/2024 3:45 PM Age: 49 years old Clinical indication: Abnormal findings; Abnormal radiologic finding of the abdomen; Radiologic exam and body structure: CT abdomen; Patient HX: Liver and splenic mass(es) noted on previous CT; Additional info: Rectal cancer, Dr. Arndt would like these done the week of 02/15 TECHNIQUE: Imaging protocol: Magnetic resonance imaging of the abdomen without and with contrast. Contrast material: MULTIHANCE; Contrast volume: 13 ml; Contrast route: INTRAVENOUS (IV); COMPARISON: 1. CT abdomen pelvis wo/w [id number] 01/03/2024 6:[address] abdomen pelvis w con* [id number] 06/02/2021 12:54 PM FINDINGS: Diaphragm: Small sliding hiatal hernia. Liver: Liver is normal in size. No significant hepatic steatosis. Several nonenhancing subcentimeter foci are seen within the liver which demonstrate increased T2 weighted signal. Gallbladder and biliary ducts: Unremarkable. No stones. No ductal dilation. Pancreas: Unremarkable. No ductal dilation. Spleen: Unremarkable. No splenomegaly. Adrenal glands: Unremarkable. No mass. Kidneys: Dominant left renal cyst measures 2 cm. Subcentimeter left renal cortical cysts are also noted. No hydronephrosis. Stomach and bowel: Visualized stomach and intestines are unremarkable. Intraperitoneal space: No free fluid. Vasculature: No abdominal aortic aneurysm. Lymph nodes: No enlarged nodes. Bones/joints: Unremarkable. No suspicious lesions. Soft tissues: Unremarkable. MR/MR abdomen wo/w con* [id number] IMPRESSION: 1. Subcentimeter nonenhancing lesions within the liver favor tiny cysts. No definite suspicious liver lesion. 2. Left renal cortical cysts. COMMENTS: Consistent with the [employer]'s Incidental Findings Committee white paper (J Am Hanna Radiol 2018): Any incidental renal lesion less than 1 cm or classified as too small to characterize, or any incidental cystic renal lesion characterized as simple-appearing, is likely benign. No follow-up imaging is recommended for these lesions per consensus recommendations based on imaging criteria.
[2024-03-03] MEDS: gadobenate dimeglumine 20 mL vial IV (16:16)
--- NOTE | 2024-03-07 16:45 | CTR_ITS ---
PROCEDURE INFORMATION: Exam: CT Chest With Contrast; Diagnostic Exam date and time: 03/07/2024 5:06 PM Age: 49 years old Clinical indication: Condition or disease; Other: Rectal cancer; Additional info: Rectal cancer, Dr. Arndt would like this done the week of 02/15 TECHNIQUE: Imaging protocol: Diagnostic computed tomography of the chest with contrast. Radiation optimization: All CT scans at this facility use at least one of these dose optimization techniques: automated exposure control; mA and/or kV adjustment per patient size (includes targeted exams where dose is matched to clinical indication); or iterative reconstruction. Contrast material: OMNI 350; Contrast volume: 100 ml; Contrast route: INTRAVENOUS (IV); COMPARISON: CR XR chest 2V* [id number] 06/02/2021 11:25 AM RADIATION DOSE METRICS: Total DLP (mGy-cm): 250.03 FINDINGS: Lungs: Unremarkable. No consolidation. No masses. Pleural spaces: Unremarkable. No pneumothorax. No pleural effusion. Heart: Unremarkable. No cardiomegaly. No pericardial effusion. Lymph nodes: Unremarkable. No enlarged lymph nodes. Vasculature: Unremarkable. No aortic aneurysm. Kidneys: Left renal cysts. Bones/joints: Unremarkable. No acute fracture. Soft tissues: Unremarkable. CT/CT chest w con* [id number] IMPRESSION: No acute findings. COMMENTS: Consistent with the [employer]'s Incidental Findings Committee white paper (J Am Hanna Radiol 2018): Any incidental renal lesion less than 1 cm or classified as too small to characterize, or any incidental cystic renal lesion characterized as simple-appearing, is likely benign. No follow-up imaging is recommended for these lesions per consensus recommendations based on imaging criteria.
[2024-03-07] MEDS: iohexol 350 mg/mL 500 mL Btl (per mL) IV (17:20)
== END 2024-03-07 23:59 | disposition home or self-care (01) ==
LOC: ONCMED 15:28 → RAD 15:29 → ONCMED 03-06 09:00 → RAD 03-07 16:21 → ONCMED 03-07 16:22
PROVIDERS: PCP Family Medicine; Visit Provider Internal Medicine
DX: R93.2 Abnormal findings on diagnostic imaging of liver and biliary tract (principal); C20 Malignant neoplasm of rectum; K92.1 Melena; N28.1 Cyst of kidney, acquired
CPT/HCPCS: 71260; 74183

== ENCOUNTER 2024-03-29 09:02 | Oncology outpatient (recurring) (ONCR) | payer BC, MEDICAID, SELFPAY ==
[2024-03-29 09:25] LABS: Basophils # 0.1 10^3/uL (0.0-0.1); Basophils % 0.9 %; Eosinophils # 0.1 10^3/uL (0.0-0.8); Eosinophils % 1.6 %; Hematocrit 42.5 % (37-53); Lymphocytes # 1.8 10^3/uL (0.8-4.8); Lymphocytes % 26.5 %; Mean Corpuscular HGB Conc 33.9 g/dL (30-55); Mean Corpuscular Hemoglobin 29.3 pg (27-33); Mean Corpuscular Volume 86.6 fl (82-101); Mean Platelet Volume 9.5 fL (7.4-10.4); Monocytes # 0.5 10^3/uL (0.2-0.9); Monocytes % 6.6 %; Neutrophils # 4.45 10^3/uL (1.8-7.7); Neutrophils % 64.1 %; Nucleated Red Blood Cells % 0 %; Platelet Count 323 10^3/cmm (157-399); Red Blood Count 4.91 10^6/uL (3.85-5.65); White Blood Count 6.94 10^3/uL (3.29-11.43)
[2024-03-29 09:42] LABS: Alanine Aminotransferase 10 U/L (0-41); Alkaline Phosphatase 112 U/L (40-130); Anion Gap 18.1 (5-19); Aspartate Amino Transferase 11 U/L (0-40); Blood Urea Nitrogen 6 mg/dL (6-20); Calcium 9.2 mg/dL (8.5-10.5); Carbon Dioxide 22 mmol/L (22-29); Chloride 103 mmol/L (98-107); Creatinine Clr Calc Pharmacy 123.4723; Globulin 2.5 g/dL (1.3-4.6); Glomerular Filtration Rate 120.9 mL/min (90-130); Glucose 183 mg/dL (65-115); Osmolality Calculated 290 mOsm/kg (285-295); Potassium 4.1 mmol/L (3.5-5.1); Sodium 139 mmol/L (136-145); Total Bilirubin 0.5 mg/dL (0.15-1.2); Total Protein 6.5 g/dL (6.6-8.7)
[2024-03-29 12:26] LABS: Carcinoembryonic Antigen 2.1 ng/mL (0.0-4.7)
== END 2024-04-07 23:59 | disposition home or self-care (01) ==
PROVIDERS: PCP Family Medicine; Visit Provider Internal Medicine
DX: C20 Malignant neoplasm of rectum (principal)
CPT/HCPCS: 36415; 80053; 82378; 85025

== ENCOUNTER 2024-04-13 08:58 | Day surgery (SDC) | payer BC, MEDICAID, SELFPAY ==
[2024-04-13] VITALS (7 sets, daily range): BP systolic 99–123; BP diastolic 73–90; PULSE 67–91; RESP 16–20; TEMP 36.1–37.1; O2SAT 96–100
--- NOTE | 2024-04-13 09:25 | SC_ITS ---
WS: [id number] C ARM fluoroscopy for port insertion, 04/13/2024 Clinical Data: Mediport placement Comparison: Two-view chest, 06/02/2021 Findings: Dr. Pina inserted a right infusion port. SC/C-arm FL for CVA [id number] Impression: Insertion of infusion port.
--- NOTE | 2024-04-13 09:25 | XR_ITS ---
WS: [id number] Portable AP upright chest, 04/13/2024 Clinical Data: Postop Mediport placement Comparison: Two-view chest, 06/02/2021 Findings: No nodules, masses or effusions are seen. The heart is normal. The pulmonary vascularity is not increased. No pneumonia or pneumothorax is seen. There is a right infusion port which enters the internal jugular vein and ends in the superior vena cava. There is a dextroscoliosis. Monitor leads are on the chest wall. XR/XR chest 1V portable [id number] Impression: Satisfactory placement of Mediport.
[2024-04-13] MEDS: sodium chloride 0.9% 1,000 ML 30 ML IV (09:49)
--- NOTE | 2024-04-13 09:55 | P.ANESASSM_ITS ---
Pre-Anesthetic Assessment Height/Weight: Height 1.75 m Weight 61.235 kg Temp Pulse Resp BP Pulse Ox O2 Del Method 98.8 F 91 16 123/82 96 Room Air 04/13/24 09:32 04/13/24 09:32 04/13/24 09:32 04/13/24 09:32 04/13/24 09:32 04/13/24 09:32 Operation Date: 04/13/24 11:55 Proposed Procedures p Portacath Placement 25190, C20(Not Applicable) - Suleman Pina DO Familial anesthetic complications: None Was Beta Ivet taken within 24 hours: N/A Was Clonidine taken within 24 hours: N/A Last intake: Intake Last Liquid Date 04/12/24 Last Liquid Time 17:30 Last Solid Date 04/12/24 Last Solid Time 17:30 Social No alcohol and No tobacco Vapes Exam alert, oriented x 3, clear to auscultation bilaterally and regular rate & rhythm Airway Dentition: other (extremely poor dentition, very few remaining and all with severe decay) GI colon cancer Anesthetic Plan ASA status: 3 Anesthesia: MAC Risk of > 500 ml blood loss (7ml/kg in children): No Medications/Allergies Home Medications ?Medication ?Instructions ?Recorded ?Confirmed ?Last Taken ?Type lorazepam 1 mg tablet 0.5 - 1 mg (0.5 - 1 x 1 mg) PO Q6H 04/03/24 04/13/24 Unknown Rx PRN severe nausea #30 tabs ondansetron HCl 4 mg tablet 4 mg PO Q6H PRN nausea and 04/03/24 04/13/24 Unknown Rx vomiting #30 tabs prochlorperazine maleate 10 mg 10 mg PO Q4H PRN mild n ausea #30 04/03/24 04/13/24 Unknown Rx tablet (Compazine) tabs oxycodone 5 mg tablet 5 mg PO Q8H PRN pain 30 days #90 04/10/24 04/13/24 Unknown Rx tabs Allergies Allergy/AdvReac Type Severity Reaction Status Date / Time No Known Allergies Allergy Verified 04/12/24 13:08 Current Medications Generic Name Dose Route Start Last Admin Trade Name Freq PRN Reason Stop Dose Admin Sodium Chloride 1,000 mls @ 30 mls/hr 04/13/24 09:30 04/13/24 09:49 Sodium Chloride 0.9% IV 04/14/24 09:29 30 mls/hr .Q24H INES Administration PFSH Anesthesia Social History Smoking and tobacco/nicotine status: never used tobacco/nicotine Alcohol intake: never Substance/Drug Use: current Other substance/drug use details: Occasional use Marital status: Number of children: 4 Data Anesthesia Cardiac Studies: No Data to Display
--- NOTE | 2024-04-13 11:27 | W.PM.OPSUD ---
Surgery/Procedure H&P Update DATE OF PROCEDURE: April 13, 2024 DATE H&P PERFORMED: 03/31/24 H&P UPDATE INFORMATION: I have reviewed H&P completed within last 30 days, I have examined patient prior to procedure and No changes to prior documentation PLANNED PROCEDURE: Operation Date: 04/13/24 10:40 Proposed Procedures p Portacath Placement [id number], C20(Not Applicable) - Suleman Pina, DO
[2024-04-13] MEDS: ceFAZolin 2,000 mg SDV 2000 MG IVP (12:00)
[2024-04-13] MEDS: heparin, porcine 1,000 unit/mL INJ 10 mL 10000 UNIT INTRACATH (12:42)
[2024-04-13] MEDS: lidocaine-epi 2% PF 1:200,000 20 mL SDV XX (12:44)
--- NOTE | 2024-04-13 12:50 | PM.OP ---
Operative Report Date of procedure: April 13, 2024 Surgeon: Suleman Pina DO Procedure: Preoperative diagnosis: Colon and rectal cancer Post-op diagnosis: same Procedure done: Mediport placement Intraoperative interpretation of fluoroscopy Implants: PowerPort Specimens removed/disposition: None Surgeon: Suleman Pina DO Anesthesia: MAC and Local Estimated blood loss (mL): 5 Complications: None apparent Procedure: The patient was taken to the operating room and placed supine on the operating room table. All bony prominences were padded. She was given IV sedation and monitored throughout the case by the anesthesia personnel. SCDs were placed and turned on. The arms were tucked to the side. Patient received Ancef 2 g preoperatively IV. The bilateral chest wall was prepped and draped in usual sterile fashion using chlorhexidine base prep. Sterile drapes were applied. We did procedure pause prior to beginning. Attempts were made to access the left subclavian vein but were unsuccessful. I then moved to the right side. An 18 gauge needle was placed in the right subclavian vein. Dark, nonpulsatile blood was aspirated. A guidewire was placed through the needle centrally toward the atrial/vena caval junction. Fluoroscopy visualized good placement. The needle was removed and the guidewire was clipped to the drape with a hemostat. Further local anesthetic was infiltrated in the soft tissues of the right chest wall and a #15 blade was used to make a horizontal skin incision. A subcutaneous Mediport pocket was created using Bovie cautery, dissecting down through the skin and subcutaneous tissues. Meticulous hemostasis was achieved. The Mediport was sutured in position using 3-0 vicryl suture x2 stitches. A #15 blade was used to make a small skin hina around the guidewire insertion area. The Mediport tubing was tunneled through the subcutaneous tissues up to the needle insertion location. A dilator with a peel-away sheath was placed over the guidewire and placed centrally. After measuring the Mediport tubing was cut to length so that the tip would end at the atrial/vena caval junction. The inner cannula and the guidewire were removed, leaving the dilator sheath in place. The Mediport was flushed. The tip of the catheter was inserted through the peel-away sheath and the peel-away sheath removed in the standard fashion. The Mediport was accessed with a straight Caba needle and dark, nonpulsatile blood was aspirated and flushed using heparinized saline to hep-lock the Mediport. Final fluoroscopy visualization showed no kink in the catheter and the tip of the Mediport tubing near the atrial/vena caval junction. There is no obvious pneumothorax. Both skin incisions were thoroughly irrigated and suctioned dry. Meticulous hemostasis noted. The dermis was approximated with 3-0 Vicryl in an interrupted fashion. Skin was closed with Dermabond. Patient was awakened from anesthesia and transferred via her cart to the recovery room in stable condition. All needle, sponge, and instrument counts were correct per the operating personnel x2 counts.
--- NOTE | 2024-04-13 14:15 | ANE.PACU2 ---
Inpatient post-anesthesia follow up: Airway intact: Yes Vital signs: Temperature 97.1 F Pulse Rate 67 Respiratory Rate 16 Blood Pressure 117/73 Pulse Oximetry 100 Oxygen Delivery Me thod Room Air Oxygen Flow Rate Fraction of Inspir ed Oxygen Hydration adequate: Yes Nausea and vomiting: Yes Pain level: 1 Mental status: Baseline
== END 2024-04-13 14:13 | disposition home or self-care (01) ==
PROVIDERS: PCP Nurse Practitioner Family; Visit Provider Surgery
DX: C20 Malignant neoplasm of rectum (principal); K63.5 Polyp of colon
CPT/HCPCS: 71045; 76000; 77001; C1788; J0690; J1644; J2250; J2704; J3010; J7030

== ENCOUNTER 2024-04-17 19:22 | Emergency (ER) | payer BC, MEDICAID, SELFPAY ==
[2024-04-17 19:35] VITALS: BP 119/83; PULSE 99; RESP 14; TEMP 36.9; O2SAT 99
--- NOTE | 2024-04-17 20:29 | W.ED.GENADLT ---
HPI - General Adult General: Chief complaint: General Medical Stated complaint: Wants Cath Covered Time Seen by Provider: 04/17/24 19:40 Source: patient Mode of arrival: ambulatory Limitations: no limitations History of Present Illness: Patient is a 49-year-old male who presents the emergency department complaining of pain to port site. He recently had Port-A-Cath placed right anterior chest, states that he has pain when his shirt rubs up against it. He has not been covering it with anything. Denies any fever, purulent drainage, lymph node swelling, shortness of breath, or other symptoms at this time. Vitals are stable. MD complaint: Pain at Port-A-Cath site Onset (ago): hour(s) Location: chest Severity: mild Exacerbating factors: other (Direct contact with shirt) Associated symptoms: Deny chest pain, dyspnea, headache(s), nausea, rash or vomiting Treatments prior to arrival: none Related Data Previous Rx's ?Medication ?Instructions ?Recorded lorazepam 1 mg tablet 0.5 - 1 mg (0.5 - 1 x 1 mg) PO Q6H 04/03/24 Held on 04/13/24. PRN severe nausea #30 tabs Instructions: Resume on 04/14/24. ondansetron HCl 4 mg tablet 4 mg PO Q6H PRN nausea and 04/03/24 vomiting #30 tabs prochlorperazine maleate 10 mg 10 mg PO Q4H PRN mild nausea #30 04/03/24 tablet (Compazine) tabs oxycodone 5 mg tablet 5 mg PO Q8H PRN pain 30 days #90 04/10/24 Held on 04/13/24. tabs Instructions: Resume on 04/16/24. docusate sodium 100 mg capsule 100 mg PO BID #10 caps 04/13/24 (Colace) oxycodone-acetaminophen 7.5 mg-325 1 tab PO Q6H PRN pain #10 tabs 04/13/24 mg tablet cefdinir 300 mg capsule 300 mg PO BID 7 days #14 caps 04/17/24 Allergies Allergy/AdvReac Type Severity Reaction Status Date / Time No Known Allergies Allergy Verified 04/17/24 19:38 Review of Systems General: Reports: 10 or more systems reviewed and unremarkable except in HPI and below Const: Denies: fever(s) or chills Card: Denies: chest pain Resp: Denies: dyspnea GI: Denies: abdominal pain, nausea, vomiting or diarrhea Musc: Denies: extremity pain or joint pain Skin/Breast: Reports: skin pain (Right chest wall Port-A-Cath site) and skin tenderness; Denies: rash or new lesions Neuro: Denies: headache(s) PFSH ED PFSH: Social History Smoking and tobacco/nicotine status: never used tobacco/nicotine Alcohol intake: never Substance/Drug Use: current Other substance/drug use details: Occasional use Marital status: Number of children: 4 Physical Exam Const: COMMON NORMALS: no acute distress, average body habitus, patient oriented x3, no limitations, healthy appearing, alert and well nourished HENMT: COMMON NORMALS: normocephalic and atraumatic HEAD & SCALP: normocephalic and atraumatic Neck/C-Spine: COMMON NORMALS: full ROM, no lymphadenopathy, supple and no meningeal signs Chest: OTHER: Port-A-Cath right anterior chest wall, there is mild erythema noted however no purulent drainage. Area is tender to the touch. Resp: COMMON NORMALS: normal respiratory effort, No use of accessory muscles and clear to auscultation bilaterally AUSCULTATION: clear to auscultation bilaterally Cardio: COMMON NORMALS: regular rate and regular rhythm RATE: regular rate RHYTHM: regular rhythm Extremity: COMMON NORMALS: full ROM and capillary refill normal Neuro: COMMON NORMALS: patient oriented x3 SENSORIUM/ORIENTATION: Yes alert MENINGEAL SIGNS: Yes no meningeal signs Skin: COMMON NORMALS: no rashes or lesions noted, no wounds and turgor normal NARRATIVE SKIN EXAM: See chest exam GENERAL SKIN EXAM: no rashes or lesions noted and turgor normal Course Vital Signs: Vital signs: Vital Signs Temperature 98.4 F 04/17/24 19:35 Pulse Rate 99 04/17/24 19:35 Respiratory Rate 14 04/17/24 19:35 Blood Pressure 119/83 04/17/24 19:35 Pulse Oximetry 99 04/17/24 19:35 Oxygen Delivery Me thod Room Air 04/17/24 19:35 MDM - General Adult Medical Decision Making Patient here stating that he just wants something to cover his Port-A-Cath site as it has been rubbing against his shirt causing pain. States that he is on antibiotics, however reviewing his chart I do not see any antibiotics. There was some redness noted, could be early cellulitis or could just be from recent operation we will go ahead and placed on antibiotics and have him closely follow-up with surgeon. His vitals are unremarkable, he had no other complaints. Dr. Cortes did see this patient and agrees with disposition at this time. No radiology studies performed this visit Discharge Plan Discharge Patient Disposition: Home Clinical Impression: Anterior chest wall pain, Cellulitis of chest wall Condition: Stable Prescriptions: New cefdinir 300 mg capsule 300 mg PO BID 7 Days Qty: 14 0RF No Action prochlorperazine maleate [Compazine] 10 mg tablet 10 mg PO Q4H PRN (Reason: mild nausea) Qty: 30 3RF ondansetron HCl 4 mg tablet 4 mg PO Q6H PRN (Reason: nausea and vomiting) Qty: 30 3RF lorazepam 1 mg tablet 0.5 - 1 mg PO Q6H PRN (Reason: severe nausea) Qty: 30 3RF oxycodone 5 mg tablet 5 mg PO Q8H PRN (Reason: pain) 30 Days Qty: 90 0RF oxycodone-acetaminophen 7.5-325 mg tablet 1 tab PO Q6H PRN (Reason: pain) Qty: 10 0RF docusate sodium [Colace] 100 mg capsule 100 mg PO BID Qty: 10 0RF Discharge Orders: Discharge ED (Routine); Ordered 04/17/24 Ordered By: Kurt Toure Referrals: Neela Chaney FNP [Primary Care Provider] - Activity Restrictions/Additional Instructions: Cefdinir as prescribed. May keep cath site covered with nonstick gauze. Please follow-up closely with your surgeon. Please return with any fever, worsening of pain, drainage of pus, or other concerning signs of infection. Print Language: Bel[place]ian Coding Level of Care Code ED [employer] Engineer for Mateus Murphy
[2024-04-17] MEDS: cefdinir 300 MG CAPSULE PO (20:30)
[2024-04-17 20:41] VITALS: BP 126/87; PULSE 94; O2SAT 98
== END 2024-04-17 20:40 | disposition home or self-care (01) ==
PROVIDERS: Emergency Provider Physician Assistant; PCP Nurse Practitioner Family
DX: R07.89 Other chest pain (principal); L03.313 Cellulitis of chest wall
CPT/HCPCS: 99283

== ENCOUNTER 2024-06-02 11:00 | Oncology outpatient (recurring) (ONCR) | payer BC, MEDICAID, SELFPAY ==
[2024-05-08 08:13] LABS: Basophils # 0.1 10^3/uL (0.0-0.1); Eosinophils # 0.1 10^3/uL (0.0-0.8); Eosinophils % 1.7 %; Hematocrit 40.8 % (37-53); Lymphocytes # 1.9 10^3/uL (0.8-4.8); Lymphocytes % 27.9 %; Mean Corpuscular HGB Conc 34.6 g/dL (30-55); Mean Corpuscular Hemoglobin 30.5 pg (27-33); Mean Corpuscular Volume 88.3 fl (82-101); Mean Platelet Volume 9.3 fL (7.4-10.4); Monocytes # 0.5 10^3/uL (0.2-0.9); Neutrophils # 4.27 10^3/uL (1.8-7.7); Neutrophils % 62.1 %; Nucleated Red Blood Cells % 0 %; Platelet Count 330 10^3/cmm (157-399); Red Blood Count 4.62 10^6/uL (3.85-5.65); Red Cell Distribution Width 14.6 % (12.1-15.1); White Blood Count 6.88 10^3/uL (3.29-11.43)
[2024-05-08 09:28] LABS: Carcinoembryonic Antigen 2.9 ng/mL (0.0-4.7)
[2024-05-08 09:39] LABS: Alanine Aminotransferase 9 U/L (0-41); Albumin Level 3.9 g/dL (3.5-5.2); Alkaline Phosphatase 118 U/L (40-130); Aspartate Amino Transferase 13 U/L (0-40); Blood Urea Nitrogen 3 mg/dL (6-20); Carbon Dioxide 24 mmol/L (22-29); Chloride 100 mmol/L (98-107); Globulin 2.6 g/dL (1.3-4.6); Glomerular Filtration Rate 120.9 mL/min (90-130); Glucose 90 mg/dL (65-115); Osmolality Calculated 276 mOsm/kg (285-295); Sodium 135 mmol/L (136-145); Total Bilirubin 0.5 mg/dL (0.15-1.2); Total Protein 6.5 g/dL (6.6-8.7)
[2024-05-08 09:40] LABS: Anion Gap 14.7 (5-19); Potassium 3.7 mmol/L (3.5-5.1)
[2024-05-08 10:09] LABS: Ferritin 55 ng/mL (30-400); Iron 94 ug/dL (59-158); Percent Saturation 33.3 % (20-50); Total Iron Binding Capacity 282 mcg/dl; Unsaturated Iron Binding 188 ug/dL (112-347)
[2024-05-08] MEDS: palonosetron 0.25 mg/5 mL SDV IVP (10:41)
[2024-05-08] MEDS: dextrose 5% 250 ML 75 ML IV (10:41)
[2024-05-08] MEDS: dexamethasone 4 mg/mL INJ 5 mL 12 MG IVP (10:45)
[2024-05-08] MEDS: oxaliplatin 100 MG, oxaliplatin 46 MG in dextrose 5% 250 ML 139.6 MG IV (11:26)
[2024-05-08] MEDS: leucovorin 680 MG in dextrose 5% 250 ML 62.5 MG IV (11:26)
[2024-05-08] MEDS: fluorouraciL 4,100 MG, elastomeric pump 1 PUMP in sodium chloride 0.9% (100 ml) 10 ML IV (13:40)
[2024-05-08] MEDS: fluorouraciL 50 mg/ml MDV 100 mL 700 MG IVP (13:40)
[2024-05-08 13:48] VITALS: BP 115/80; PULSE 76; RESP 16; TEMP 36.2; O2SAT 98
[2024-05-15 13:22] LABS: Basophils % 0.9 %; Eosinophils # 0.1 10^3/uL (0.0-0.8); Eosinophils % 1.5 %; Hematocrit 40.1 % (37-53); Lymphocytes # 1.7 10^3/uL (0.8-4.8); Lymphocytes % 35.6 %; Mean Corpuscular HGB Conc 34.9 g/dL (30-55); Mean Corpuscular Hemoglobin 29.9 pg (27-33); Mean Corpuscular Volume 85.5 fl (82-101); Mean Platelet Volume 9.8 fL (7.4-10.4); Monocytes # 0.3 10^3/uL (0.2-0.9); Monocytes % 6.7 %; Neutrophils # 2.56 10^3/uL (1.8-7.7); Neutrophils % 55.1 %; Nucleated Red Blood Cells % 0 %; Platelet Count 221 10^3/cmm (157-399); Red Blood Count 4.69 10^6/uL (3.85-5.65); Red Cell Distribution Width 13.5 % (12.1-15.1); White Blood Count 4.64 10^3/uL (3.29-11.43)
[2024-05-15 13:42] LABS: Alanine Aminotransferase 15 U/L (0-41); Alkaline Phosphatase 86 U/L (40-130); Anion Gap 14.7 (5-19); Aspartate Amino Transferase 16 U/L (0-40); Blood Urea Nitrogen 10 mg/dL (6-20); Calcium 9.1 mg/dL (8.5-10.5); Carbon Dioxide 26 mmol/L (22-29); Chloride 96 mmol/L (98-107); Globulin 2.5 g/dL (1.3-4.6); Glomerular Filtration Rate 120.9 mL/min (90-130); Glucose 103 mg/dL (65-115); Osmolality Calculated 275 mOsm/kg (285-295); Potassium 3.7 mmol/L (3.5-5.1); Sodium 133 mmol/L (136-145); Total Bilirubin 0.3 mg/dL (0.15-1.2); Total Protein 6.5 g/dL (6.6-8.7)
[2024-05-31 07:35] LABS: Basophils # 0.1 10^3/uL (0.0-0.1); Basophils % 0.8 %; Eosinophils # 0.1 10^3/uL (0.0-0.8); Eosinophils % 1.3 %; Hematocrit 40.4 % (37-53); Lymphocytes # 1.9 10^3/uL (0.8-4.8); Lymphocytes % 32.4 %; Mean Corpuscular HGB Conc 33.2 g/dL (30-55); Mean Corpuscular Hemoglobin 29.5 pg (27-33); Mean Platelet Volume 8.7 fL (7.4-10.4); Monocytes # 0.7 10^3/uL (0.2-0.9); Monocytes % 10.9 %; Neutrophils # 3.23 10^3/uL (1.8-7.7); Neutrophils % 53.9 %; Nucleated Red Blood Cells % 0 %; Platelet Count 265 10^3/cmm (157-399); Red Blood Count 4.54 10^6/uL (3.85-5.65); Red Cell Distribution Width 14.5 % (12.1-15.1); White Blood Count 5.99 10^3/uL (3.29-11.43)
[2024-05-31 07:59] LABS: Carcinoembryonic Antigen 1.7 ng/mL (0.0-4.7)
[2024-05-31 08:12] LABS: Alanine Aminotransferase 9 U/L (0-41); Albumin Level 3.9 g/dL (3.5-5.2); Alkaline Phosphatase 117 U/L (40-130); Anion Gap 13.9 (5-19); Aspartate Amino Transferase 12 U/L (0-40); Blood Urea Nitrogen 4 mg/dL (6-20); Calcium 8.9 mg/dL (8.5-10.5); Carbon Dioxide 25 mmol/L (22-29); Chloride 99 mmol/L (98-107); Globulin 2.4 g/dL (1.3-4.6); Glomerular Filtration Rate 144.4 mL/min (90-130); Glucose 156 mg/dL (65-115); Osmolality Calculated 278 mOsm/kg (285-295); Potassium 3.9 mmol/L (3.5-5.1); Sodium 134 mmol/L (136-145); Total Bilirubin 0.3 mg/dL (0.15-1.2); Total Protein 6.3 g/dL (6.6-8.7)
[2024-05-31] MEDS: dextrose 5% 250 ML 75 ML IV (09:25)
[2024-05-31] MEDS: palonosetron 0.25 mg/5 mL SDV IVP (09:28)
[2024-05-31] MEDS: dexamethasone 4 mg/mL INJ 5 mL 12 MG IVP (09:29)
[2024-05-31] MEDS: leucovorin 680 MG in dextrose 5% 250 ML 62.5 MG IV (10:40)
[2024-05-31] MEDS: oxaliplatin 100 MG, oxaliplatin 46 MG in dextrose 5% 250 ML 139.6 MG IV (10:40)
[2024-05-31] MEDS: fluorouraciL 50 mg/ml MDV 100 mL 700 MG IVP (13:02)
[2024-05-31] MEDS: fluorouraciL 4,100 MG, elastomeric pump 1 PUMP in sodium chloride 0.9% (100 ml) 10 ML IV (13:20)
[2024-05-31 13:35] VITALS: BP 113/71; PULSE 71; RESP 16; TEMP 36.2; O2SAT 97
== END 2024-06-05 23:59 | disposition home or self-care (01) ==
PROVIDERS: Internal Medicine; Internal Medicine Medical Oncology; PCP Nurse Practitioner Family; Visit Provider Nurse Practitioner Family
DX: Z53.9 Procedure and treatment not carried out, unspecified reason; Z45.1 Encounter for adjustment and management of infusion pump
CPT/HCPCS: 36591; 80053; 82378; 82728; 83540; 83550; 85025; 96365; 96366; 96368; 96375; 96409; 96411; 96413; 96415; 96416; 96523; J0640; J1100; J2469; J7060; J9190; J9263

== ENCOUNTER 2024-07-05 07:30 | Oncology outpatient (recurring) (ONCR) | payer BC, MEDICAID, SELFPAY ==
[2024-06-14 07:23] LABS: Basophils % 0.5 %; Eosinophils # 0.1 10^3/uL (0.0-0.8); Eosinophils % 2.4 %; Hematocrit 36.1 % (37-53); Lymphocytes # 1.4 10^3/uL (0.8-4.8); Lymphocytes % 31.8 %; Mean Corpuscular HGB Conc 33.5 g/dL (30-55); Mean Corpuscular Volume 89.6 fl (82-101); Mean Platelet Volume 9.2 fL (7.4-10.4); Monocytes # 0.3 10^3/uL (0.2-0.9); Monocytes % 7.5 %; Neutrophils # 2.45 10^3/uL (1.8-7.7); Neutrophils % 57.6 %; Nucleated Red Blood Cells % 0 %; Platelet Count 180 10^3/cmm (157-399); Red Blood Count 4.03 10^6/uL (3.85-5.65); White Blood Count 4.25 10^3/uL (3.29-11.43)
[2024-06-14 07:38] LABS: Alanine Aminotransferase 7 U/L (0-41); Albumin Level 3.8 g/dL (3.5-5.2); Alkaline Phosphatase 96 U/L (40-130); Anion Gap 14.4 (5-19); Aspartate Amino Transferase 11 U/L (0-40); Blood Urea Nitrogen 3 mg/dL (6-20); Calcium 8.7 mg/dL (8.5-10.5); Carbon Dioxide 23 mmol/L (22-29); Chloride 104 mmol/L (98-107); Globulin 2.3 g/dL (1.3-4.6); Glomerular Filtration Rate 144.4 mL/min (90-130); Glucose 128 mg/dL (65-115); Osmolality Calculated 284 mOsm/kg (285-295); Potassium 3.4 mmol/L (3.5-5.1); Sodium 138 mmol/L (136-145); Total Bilirubin 0.2 mg/dL (0.15-1.2); Total Protein 6.1 g/dL (6.6-8.7)
[2024-06-14] MEDS: dextrose 5% 250 ML 75 ML IV (09:18)
[2024-06-14] MEDS: palonosetron 0.25 mg/5 mL SDV IVP (09:22)
[2024-06-14] MEDS: dexamethasone 4 mg/mL INJ 5 mL 12 MG IVP (09:24)
[2024-06-14] MEDS: leucovorin 680 MG in dextrose 5% 250 ML 62.5 MG IV (10:14)
[2024-06-14] MEDS: oxaliplatin 100 MG, oxaliplatin 46 MG in dextrose 5% 250 ML 139.6 MG IV (10:14)
[2024-06-14] MEDS: fluorouraciL 50 mg/ml MDV 100 mL 700 MG IVP (12:39)
[2024-06-14] MEDS: fluorouraciL 4,100 MG, elastomeric pump 1 PUMP in sodium chloride 0.9% (100 ml) 10 ML IV (12:40)
[2024-06-14 12:51] VITALS: BP 114/74; PULSE 77; TEMP 36.2; O2SAT 99
[2024-07-05 07:52] LABS: Basophils # 0.1 10^3/uL (0.0-0.1); Basophils % 1.1 %; Eosinophils % 0.6 %; Hematocrit 38.3 % (37-53); Lymphocytes # 1.9 10^3/uL (0.8-4.8); Lymphocytes % 34.5 %; Mean Corpuscular HGB Conc 32.6 g/dL (30-55); Mean Corpuscular Volume 92.1 fl (82-101); Monocytes # 0.8 10^3/uL (0.2-0.9); Monocytes % 14.2 %; Neutrophils # 2.61 10^3/uL (1.8-7.7); Neutrophils % 48.1 %; Nucleated Red Blood Cells % 0 %; Platelet Count 265 10^3/cmm (157-399); Red Blood Count 4.16 10^6/uL (3.85-5.65); Red Cell Distribution Width 15.5 % (12.1-15.1); White Blood Count 5.42 10^3/uL (3.29-11.43)
[2024-07-05 08:08] LABS: Alanine Aminotransferase 112 U/L (0-41); Albumin Level 3.8 g/dL (3.5-5.2); Alkaline Phosphatase 145 U/L (40-130); Anion Gap 14.3 (5-19); Aspartate Amino Transferase 93 U/L (0-40); Blood Urea Nitrogen 7 mg/dL (6-20); Calcium 8.9 mg/dL (8.5-10.5); Carbon Dioxide 25 mmol/L (22-29); Chloride 102 mmol/L (98-107); Creatinine Clr Calc Pharmacy 125.9655; Glomerular Filtration Rate 144.4 mL/min (90-130); Glucose 94 mg/dL (65-115); Osmolality Calculated 282 mOsm/kg (285-295); Potassium 4.3 mmol/L (3.5-5.1); Sodium 137 mmol/L (136-145); Total Bilirubin 0.3 mg/dL (0.15-1.2); Total Protein 6.8 g/dL (6.6-8.7)
[2024-07-05] MEDS: dextrose 5% 250 ML 75 ML IV (09:48)
[2024-07-05] MEDS: palonosetron 0.25 mg/5 mL SDV IVP (09:48)
[2024-07-05] MEDS: dexamethasone 4 mg/mL INJ 5 mL 12 MG IVP (09:51)
[2024-07-05] MEDS: leucovorin 680 MG in dextrose 5% 250 ML 62.5 MG IV (10:33)
[2024-07-05] MEDS: oxaliplatin 100 MG, oxaliplatin 46 MG in dextrose 5% 250 ML 139.6 MG IV (10:33)
[2024-07-05] MEDS: fluorouraciL 50 mg/ml MDV 100 mL 700 MG IVP (12:46)
[2024-07-05] MEDS: fluorouraciL 4,100 MG, elastomeric pump 1 PUMP in sodium chloride 0.9% (100 ml) 10 ML IV (12:57)
[2024-07-05 13:00] VITALS: BP 100/62; PULSE 67; TEMP 36.2
== END 2024-07-05 23:59 | disposition home or self-care (01) ==
PROVIDERS: PCP Nurse Practitioner Family; Visit Provider Nurse Practitioner Family
DX: Z51.11 Encounter for antineoplastic chemotherapy (principal); C20 Malignant neoplasm of rectum; Z79.52 Long term (current) use of systemic steroids; Z79.899 Other long term (current) drug therapy
CPT/HCPCS: 80053; 85025; 96368; 96375; 96411; 96413; 96415; 96416; 96523; J0640; J1100; J2469; J7060; J9190; J9263

== ENCOUNTER 2024-07-12 07:45 | Oncology outpatient (recurring) (ONCR) | payer BC, MEDICAID, SELFPAY | END 2024-08-05 23:59 | disposition home or self-care (01) | PROVIDERS: PCP Nurse Practitioner Family; Visit Provider Nurse Practitioner Family | DX: Z53.9 Procedure and treatment not carried out, unspecified reason (principal) | CPT/HCPCS: 96523 ==

== ENCOUNTER → 2024-11-01 11:30 | Outpatient (BNVA) | payer BC, MEDICAID, SELFPAY | PROVIDERS: PCP Nurse Practitioner Family; Visit Provider Surgery | DX: Z95.828 Presence of other vascular implants and grafts (principal) | CPT/HCPCS: 87070; 87075; 87205 ==

== ENCOUNTER 2025-03-05 13:05 | Oncology outpatient (recurring) (ONCR) | payer BC, MEDICAID, SELFPAY ==
[2025-02-22 08:30] LABS: Hematocrit 41.2 % (37-53); Hemoglobin 13.60 g/dL (11.27-16.99); Mean Corpuscular HGB Conc 33.0 g/dL (30-55); Mean Corpuscular Hemoglobin 28.7 pg (27-33); Mean Corpuscular Volume 86.9 fl (82-101); Nucleated Red Blood Cells % 0 %; Platelet Count 406 10^3/cmm (157-399); Red Blood Count 4.74 10^6/uL (3.85-5.65); White Blood Count 8.23 10^3/uL (3.29-11.43)
[2025-02-22 08:50] LABS: Alanine Aminotransferase 6 U/L (0-41); Albumin Level 4.0 g/dL (3.5-5.2); Alkaline Phosphatase 136 U/L (40-130); Anion Gap 14.0 (5-19); Aspartate Amino Transferase 12 U/L (0-40); Blood Urea Nitrogen 5 mg/dL (6-20); Calcium 9.4 mg/dL (8.5-10.5); Carbon Dioxide 27 mmol/L (22-29); Chloride 101 mmol/L (98-107); Globulin 2.7 g/dL (1.3-4.6); Glucose 92 mg/dL (65-115); Osmolality Calculated 283 mOsm/kg (285-295); Potassium 4.0 mmol/L (3.5-5.1); Sodium 138 mmol/L (136-145); Total Protein 6.7 g/dL (6.6-8.7)
[2025-02-22 10:18] LABS: Carcinoembryonic Antigen 3.7 ng/mL (0.0-4.7)
[2025-02-22 10:39] LABS: Ferritin 23 ng/mL (30-400); Iron 62 ug/dL (59-158); Total Iron Binding Capacity 355 mcg/dl; Unsaturated Iron Binding 293 ug/dL (112-347)
[2025-02-22 10:55] LABS: Vitamin B12 267 pg/mL (232-1245)
--- NOTE | 2025-02-22 12:11 | N.ONRAD NP_ITS ---
Radiation Oncology New Patient Visit Patient: Kee Catherine MR#: [id number] : 1975 Age: 50 Sex: Male Dictated by: Ralph Rico DO/[facility]/YOSEPH Date of Service: 02/22/2025 Referring Physician(s) : Dr. 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 ADENOCARCINOMA DISTAL RECTUM, 2.5CM AV, LENGTH ~ 5.3CM, 50% CIRCUMFRENTIAL , ULCERATIVE /FUNGATING, MRI PELVIS (01/25/24)-RADIAL MARGIN THREATENED/-SPHINCTER INVOLVEMENT/-SUSP MESORECTAL LN, CEA 1.4 (12/29), 4 CYCLES FOLFOX LD 07/07/24, ERODED PORT REMOVED 11/01/24, LOST TO FU TILL MAR 01, CT C/A/P (02/07/25) IRREG RT MID LOWER RECTUM WITH [address] 6MM SHORT AXIS, JESSICA SURGERY 02/07/25 PERSISTENT DISTAL RECTAL TUMOR/ MESORECTAL LN, 60# WT LOSS SINCE 09/2023, APR RECOMMENDED AFTER CHEMO/CONCAVER, NEW COURSE OF 9 CYCLES FOLFOX TO START , FOLLOWED BY CONCAVER WITH 5FU, PORT PLACEMENT 02/28/25, PT REFUSING JESSICA AT THIS CONSULT DATE D/T EXAM PAIN FROM LAST WEEK, USING WC D/T PAIN/MUSCLE WASTING STAGE: [id number] ICD-10: C20, C77.5 Radiotherapy to date: Summary > No prior radiation therapy. Chief Complaint / History of Present Illness: This is a pleasant 49-year-old male sitting in a wheelchair this date seen at the request of Dr. Arndt regarding neoadjuvant CONCAVER. Patient has a long history of rectal bleeding and was found in December 2023 to have a large fungating and friable malignant appearing ulcerated 50% circumferential mass of the distal rectum approximately 2.5 cm from the anal verge. BX noted intramucosal adenocarcinoma. MRI of the pelvis and the rectum on 01/25/2024 showed circumferential mass with radial margin threatening, no sphincter involvement or suspicious extra mesorectal lymph nodes. Patient underwent 4 cycles of FOLFOX with the last dose being in June 2024. He was lost to follow-up and had an eroding port that was removed in October of this year. CT C/A/P on 02/07/2025 showed an irregularity along the right aspect of the mid/lower rectum with a single right sided mesorectal lymph node measuring 6 mm short axis. Patient was received by colorectal surgery with review of CT scan showing persistent distal rectal tumor with a mesorectal lymph node. Patient will undergo port placement on 02/28/2025. He will then undergo a full course of a FOLFOX followed by CONCAVER followed by surgery intervention. Allergies: No known allergies Medical History: No history of collagen vascular disease. No previous radiation therapy. Smoking and tobacco/nicotine status: current some day tobacco/nicotine user Alcohol intake: never Substance/Drug Use: current Other substance/drug use details: Occasional use Marital status: Number of children: 4 Current Complaints / Review of Systems: ABOVE Vital Signs: Performed on 02/22/2025 10:28 AM BMI - 18.016 kg/m2 (low), Height - 69 in, Weight - 122 lbs, Temperature - 97.5 f, Pulse - 105 /min (high), Respiration - 17 /min, O2 Sat - 99 %, Pain - 2, Fatigue - 0 and BP - 127/ 85 mm(hg). Physical Exam: General: Alert and oriented x 3. MILD distress noted and PT in WC for comfort and LE muscle wasting. HEENT: Normocephalic, atraumatic. Extraocular Movements Intact: Pupils Equal, Round, Reactive to Light and Accommodation: Sclerae anicteric. Oral cavity is clear without lesions, masses or ulcers. NECK: Supple without supraclavicular or jugular lymphadenopathy. LUNGS: Clear to auscultation bilaterally without rales, rhonchi or wheeze. HEART: Regular rate and rhythm, normal S1 and S2 without murmur, gallop or rub. MUSCULOSKELETAL: No tenderness or percussion pain over the axial skeleton, scapulae or pelvis. ABDOMEN: Soft, nontender, nondistended without masses or organomegaly. Bowell sounds are present. EXTREMITIES: No peripheral edema is identified. Limited motor and sensory examination are grossly intact and symmetric bilaterally. LE muscle wasting : REFUSED BY PT @ THIS TIME. 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 Lab: ABOVE Imaging: See HPI Impression: Locally advanced rectal carcinoma 2.5 cm from AV with length approximately 5.7 cm Plan: Options were discussed with the patient. Questions answered Patient will undergo full course FOLFOX adjuvantly followed by CONCAVER, followed by surgery. Signed by: 02/22/2025 12:09:51 PM <<Signature on File>> Time spent with patient/record review/document prep: 65 minutes CPT Code: CPT Code:
== END 2025-03-07 23:59 | disposition home or self-care (01) ==
LOC: ONCMED 13:05 → RAD 03-06 00:01 → ONCMED 03-06 09:21
PROVIDERS: PCP Nurse Practitioner Family; Visit Provider Internal Medicine
DX: Z53.9 Procedure and treatment not carried out, unspecified reason (principal)
CPT/HCPCS: 36415; 80053; 82378; 82607; 82728; 83010; 83540; 83550; 83615; 85025; 85045